=== PATIENT | male | born 1930 | race Caucasian/White ===

== ENCOUNTER 2016-06-03 21:34 | Emergency (ER) | payer OTHER ==
[~2016-06-03] VITALS: Ht 188 cm; Wt 79.4 kg
[~2016-06-03 21:34] MED LIST: ADULT LOW DOSE81 MG; ADULT LOW DOSE81 MG PO; APAP500; APAP500 PO; ASTELIN30 ML; ASTEPRO; ATORVASTATIN CA20 MG PO; AVODART0.5 MG; AVODART0.5 MG PO; AZELAST NASAL137 MC1 NASAL; AZITHROMYCIN 2250 MG PO; CARVEDILOL12.5 MG; CARVEDILOL12.5 MG PO; CEFTIN500 MG PO; COLACE100 MG PO; COUMADIN 4 MG TA4 M1; COUMADIN 4 MG TA4 M1 PO; CRESTOR20 MG; CRESTOR20 MG PO; FENOGLIDE40 MG PO; FINASTERIDE PO; FISH OIL 1,2001 EAC4 PO; FISHOIL; FISHOIL PO; FLONASE 0.05%50 MCG; FLONASE 0.05%50 MCG NASAL; FOLIC ACID 40400 MC1; FOLIC ACID 40400 MCG PO; JANTOVEN3 MG PO; KEFLEX500 MG PO; LASIX 20 MG TAB20 MG PO; LASIX 40 MG TAB40 MG PO; LISINOPRIL-HCT1 EAC1; LISINOPRIL-HCT1 EACH; LISINOPRIL10 MG PO; LISINOPRIL40 MG PO; MECLIZINE 25 MG25 M1 PO; METAMUCIL197.2 GM PO; METOPROLOL TARTRATE PO; MULTIVITAMINS; MULTIVITAMINS PO; NORCO 5-325 TA1 EACH PO; OMEPRAZOLE20 M2; PRILOSEC 20 MG20 MG PO; PROBENECID500 MG; PROBENECID500 MG PO; PROSCAR 5MG TABL5 M1 PO; SERTRALINE HCL50 MG; SERTRALINE HCL50 MG PO; SPIRONOLACTONE25 M1 PO; TAMSULOSIN HCL0.4 M1 PO; TRAMADOL 50 MG50 MG; TRAMADOL 50 MG50 MG PO; TRIGLIDE160 M1 PO; VALIUM5 MG PO; ZOLOFT100 MG PO; ZYRTEC10 M2 PO
[2016-06-03 22:30] LABS: INR 1.6; PROTIME 16.7 Seconds (9.3-11.4)
== END 2016-06-04 00:25 | disposition home or self-care (01) ==
LOC: ER 21:34
PROVIDERS: Emergency Medicine
DX: S00.83XA Contusion of other part of head, initial encounter (principal); S80.211A Abrasion, right knee, initial encounter; S51.801A Unspecified open wound of right forearm, initial encounter; E78.5 Hyperlipidemia, unspecified; I48.91 Unspecified atrial fibrillation; I25.10 Atherosclerotic heart disease of native coronary artery without angina pectoris; I10 Essential (primary) hypertension; I73.89 Other specified peripheral vascular diseases; I25.2 Old myocardial infarction; M19.90 Unspecified osteoarthritis, unspecified site; Z88.5 Allergy status to narcotic agent; W18.39XA Other fall on same level, initial encounter; Y93.89 Activity, other specified; Y92.098 Other place in other non-institutional residence as the place of occurrence of the external cause; Y99.8 Other external cause status

== ENCOUNTER 2017-04-18 14:54 | Inpatient (IN) | payer OTHER ==
[~2017-04-18] VITALS: Ht 188 cm; Wt 80.7 kg
--- NOTE | ~2017-04-18 | EKG ---
[address] [address] ELECTROCARDIOGRAM REPORT Name: FRANCES ANNE Room #: 364-P ADM IN M.R.#: [id number] Admission: 04/18/17 Attend Phys: Santiago Zepeda DO Discharge: Date of : 30 Report #: [id number] THIS REPORT FOR: //name// [facility] ED Test Date: 2017-04-18 Test Time: 15:44:54 Pat Name: FRANCES ANNE Department: Room: 364 Gender: M Sweatband Cutting Machine Operator: VERONICA : 1930 Requested By: Frances Britton Order Number: [id number] MD: Aramis Alanis Measurements Intervals [place] Rate: 97 P: [place]: 182 QRS: 29 QRSD: 226 T: -72 QT: 662 QTc: 841 Interpretive Statements A-V dual-paced complexes w/ some inhibition No further analysis attempted due to paced rhythm Compared to ECG 05/30/2013 11:49:27 No significant changes Electronically Signed On 04-18-2017 21:12:04 ECONOMICS FACULTY MEMBER by Aramis Alanis [email or web address] <ELECTRONICALLY SIGNED> By: Aramis Alanis MD 04/18/17 2112 1544 1544 Aramis Alanis MD /EPI
--- NOTE | ~2017-04-18 | 2DMMODE ---
[facility] [address] [place] [address] 2 D/M-MODE ECHOCARDIOGRAM Name: FRANCES ANNE Room #: 364-P [facility] IN M.R.#: [id number] Admission: 04/18/17 Attend Phys: Santiago Zepeda, Discharge: Date of : 30 Date of Service: 04/19/17 0950 Report #: [id number] THIS REPORT FOR: //name// APPROVED REPORT Study performed: 04/19/2017 09:24:29 EXAM: Comprehensive 2D, Doppler, and color-flow Echocardiogram Patient Location: Echo lab Room #: 364 Status: routine BSA: 2.06 HR: 63 bpm BP: 125/68 mmHg Rhythm: Paced Other Information Study Quality: Good Indications Elevated Troponin Hx: SC, ISCM, AICD, PVD, HTN, HLP 2D Dimensions RVDd: 46.37 mm LVEF(%): 25.28 (>50%) IVSd: 16.39 (7-11mm) LVOT Diam: 22.28 (18-24mm) LVDd: 67.59 mm PWd: 6.61 (7-11mm) Ascending Ao: 33.62 (22-36mm) LVDs: 59.46 (25-40mm) Aortic Root: 33.96 mm Cali's LVEF: 25.28 % Volumes Left Atrial Volume (Systole) Single Plane 4CH: 57.06 mL Single Plane 2CH: 79.83 mL LA ESV Index: 35.00 mL/m2 Aortic Valve AoV Peak Jem.: 1.09 m/s AO Peak Gr.: 4.74 mmHg LVOT Max P.78 mmHg LVOT Max V: 0.67 m/s DESI Vmax: 2.39 cm2 Mitral Valve E/A Ratio: 0.5 [facility] [place] [address] 2 D/M-MODE ECHOCARDIOGRAM Name: FRANCES ANNE Room #: 364-P [facility] IN M.R.#: [id number] Admission: 04/18/17 Attend Phys: Santiago Zepeda, Discharge: Date of : 30 Date of Service: 04/19/17 0950 Report #: [id number] MV Decel. Time: 341.15 ms MV E Max Jem.: 0.46 m/s MV A Jem.: 0.86 m/s MV PHT: 98.93 ms IVRT: 124.57 ms Pulmonary Valve PV Peak Jem.: 0.61 m/s PV Peak Gr.: 1.47 mmHg Tricuspid Valve TR Peak Jem.: 2.73 m/s RAP Estimate: 5.00 mmHg TR Peak Gr.: 29.87 mmHg PA Pressure: 35.00 mmHg Left Ventricle Left ventricle is moderately dilated. Moderate septal hypertrophy is present. Left ventricular systolic function is severely decreased. LVEF 25%. Akinesis of mid to distal setpum, inferior and inferolateral. Inferobasal aneusysm Mild diastolic dysfunction is present (impaired relaxation pattern). Right Ventricle Right ventricle is at the upper limits of normal. The right ventricular systolic function is normal. Pacemaker lead is present in the right ventricle. Atria Left atrium is mildly dilated. The right atrium size is normal. Aortic Valve Aortic valve leaflets are mildly calcified, trileaflet Mild aortic regurgitation. There is no aortic valvular stenosis. Mitral Valve The mitral valve is normal in structure. Mild mitral regurgitation. Tricuspid Valve The tricuspid valve is normal in structure. Mild tricuspid regurgitation. Estimated PAP is 35-40mmHg. Pulmonic Valve The pulmonary valve is normal in structure. Trace pulmonic regurgitation. [facility] [address] [place] [address] 2 D/M-MODE ECHOCARDIOGRAM Name: FRANCES ANNE Room #: 364-P [facility] IN M.R.#: [id number] Admission: 04/18/17 Attend Phys: Santiago Zepeda, Discharge: Date of : 30 Date of Service: 04/19/17 0950 Report #: [id number] Great Vessels The aortic root is normal in size. The ascending aorta is normal in size. IVC is normal in size and collapses >50% with inspiration. Pericardium There is no pericardial effusion. <Conclusion> Left ventricular systolic function is severely decreased. LVEF 25%. Akinesis of mid to distal setpum, inferior and inferolateral. Inferobasal aneusysm Mild diastolic dysfunction Aortic valve leaflets are mildly calcified, trileaflet. Mild aortic regurgitation, no stenosis. The mitral valve is normal in structure. Mild mitral regurgitation. Pulmonary artery pressure of 35-40mmHg Pacing wires in right heart No pericardial effusion <ELECTRONICALLY SIGNED> By: Roderick Bright MD, [facility] 04/19/1750 9 9 Roderick Bright MD, FAC /INF
--- NOTE | ~2017-04-18 | EKG ---
[address] [address] ELECTROCARDIOGRAM REPORT Name: FRANCES ANNE Room #: 364-P ADM IN M.R.#: [id number] Admission: 04/18/17 Attend Phys: Santiago Zepeda DO Discharge: Date of : 30 Report #: [id number] THIS REPORT FOR: //name// [facility] Test Date: 2017-04-19 Test Time: 06:37:33 Pat Name: FRANCES ANNE Department: Room: 364 P Gender: M [employer] Admissions Representative: COLETTE : 1930 Requested By: Juan Luis Elias Order Number: [id number] MD: Roderick Bright Measurements Intervals [place] Rate: 62 P: 124 IA: 55 QRS: 266 QRSD: 246 T: 91 QT: 566 QTc: 575 Interpretive Statements Atrial-sensed ventricular-paced rhythm No further analysis attempted due to paced rhythm Compared to ECG 04/18/2017 15:44:54 No significant changes Electronically Signed On 04-19-2017 9:57:23 CORPORATE GENERAL MANAGER by Roderick Bright [email or web address] <ELECTRONICALLY SIGNED> By: Roderick Bright MD, [facility] 04/19/17 0957 Roderick Bright MD, [facility] /EPI
[~2017-04-18 14:54] MED LIST changes: +KEFLEX500 M1 PO
[2017-04-18 14:55] VITALS: BP 90/49
[2017-04-18 15:43] LABS: HEMATOCRIT 40.5 % (42.0-52.0); HEMOGLOBIN 13.5 gm/dL (14.0-18.0); MCHC 33.5 g/dL (28.0-37.0); MCV 101.7 fL (80.0-100.0); PLATELET COUNT 167 thou/uL (150-400); RBC 3.98 mil/uL (4.50-6.00); RDW 13.9 % (10.5-14.5); WBC 15.4 thou/uL (4.0-11.0)
[2017-04-18 15:44] LABS: MANUAL DIFF YES
[2017-04-18 15:47] LABS: CALCIUM 8.7 mg/dL (8.5-10.1); POTASSIUM 4.5 mmol/L (3.5-5.1)
[2017-04-18 15:55] LABS: TROPONIN-I 0.24 ng/mL (<0.06)
[2017-04-18 15:58] LABS: INR 2.7; PROTIME 27.4 Seconds (9.3-11.4)
[2017-04-18 16:22] LABS: ABSOLUTE NEUTROPHILS 12.9 thou/uL (1.4-8.2); TOTAL CELL COUNT 100
[2017-04-18 16:23] LABS: ANISOCYTOSIS SLIGHT
[2017-04-18 17:20] LABS: URINE COLOR YELLOW; URINE SPECIFIC GRAVITY 1.015 (1.005-1.035)
[2017-04-18 17:21] LABS: URINE BILIRUBIN NEGATIVE (Negative); URINE BLOOD 2+ (Negative); URINE GLUCOSE-RANDOM* NEGATIVE (Negative); URINE KETONES NEGATIVE (Negative); URINE LEUKOCYTES-REFLEX 1+ (Negative); URINE PROTEIN (DIPSTICK) NEGATIVE (Negative); URINE UROBILINOGEN 0.2 E.U./dl (0.2-1.0)
[2017-04-18 17:29] LABS: CASTS None Seen /LPF (None Seen); CRYSTALS None Seen /LPF (None Seen); SQUAMOUS None Seen /LPF (0-3); URINE RBC 3-10 Few /HPF (0-2)
[2017-04-18 18:49] VITALS: BP 125/71
[2017-04-18 19:00] VITALS: BP 125/71
[2017-04-18 23:26] VITALS: BP 108/60
[2017-04-19 03:16] LABS: ABSOLUTE NEUTROPHILS 6.5 thou/uL (1.4-8.2); BASOPHILS 0.4 % (0.0-2.0); EOSINOPHILS 1.7 % (0.0-3.0); HEMATOCRIT 38.4 % (42.0-52.0); HEMOGLOBIN 12.8 gm/dL (14.0-18.0); LYMPHOCYTES 12.7 % (24.0-44.0); MCH 33.9 pg (26.0-34.0); MCHC 33.3 g/dL (28.0-37.0); MCV 101.8 fL (80.0-100.0); MONOCYTES 11.4 % (1.0-8.0); PLATELET COUNT 156 thou/uL (150-400); POLYS 73.8 % (36.0-66.0); RBC 3.77 mil/uL (4.50-6.00); RDW 13.3 % (10.5-14.5); WBC 8.8 thou/uL (4.0-11.0)
[2017-04-19 03:19] LABS: MANUAL DIFF NO
[2017-04-19 03:20] LABS: CREATININE 1.6 mg/dL (0.7-1.3); POTASSIUM 3.9 mmol/L (3.5-5.1)
[2017-04-19 03:55] VITALS: BP 122/73
[2017-04-19 07:37] VITALS: BP 125/68
[2017-04-19 09:52] VITALS: BP 121/66
[2017-04-19 09:53] VITALS: BP 115/64
[2017-04-19 09:55] VITALS: BP 104/50
[2017-04-19 14:49] VITALS: BP 104/50
== END 2017-04-19 16:25 | disposition home or self-care (01) | DRG 690 ==
LOC: ER 14:54 → EROBS 17:55 → 3W 17:55
PROVIDERS: Emergency Medicine; Family Medicine
DX: N39.0 Urinary tract infection, site not specified (principal); E86.0 Dehydration; I25.10 Atherosclerotic heart disease of native coronary artery without angina pectoris; I73.9 Peripheral vascular disease, unspecified; N18.9 Chronic kidney disease, unspecified; I12.9 Hypertensive chronic kidney disease with stage 1 through stage 4 chronic kidney disease, or unspecified chronic kidney disease; K57.90 Diverticulosis of intestine, part unspecified, without perforation or abscess without bleeding; I95.1 Orthostatic hypotension; I25.5 Ischemic cardiomyopathy; I49.5 Sick sinus syndrome; I48.2 Chronic atrial fibrillation; E78.00 Pure hypercholesterolemia, unspecified; Z96.649 Presence of unspecified artificial hip joint; Z96.653 Presence of artificial knee joint, bilateral; Z82.49 Family history of ischemic heart disease and other diseases of the circulatory system; Z95.5 Presence of coronary angioplasty implant and graft; Z79.899 Other long term (current) drug therapy; Z88.5 Allergy status to narcotic agent; Z95.810 Presence of automatic (implantable) cardiac defibrillator; Z86.718 Personal history of other venous thrombosis and embolism; Z86.711 Personal history of pulmonary embolism; I25.2 Old myocardial infarction; Z90.49 Acquired absence of other specified parts of digestive tract
CPT/HCPCS: 10879

== ENCOUNTER → 2019-02-01 | Outpatient (CLI) | payer OTHER ==
[~2019-02-01] VITALS: Ht 188 cm; Wt 76.2 kg
[~2019-02-01] MED LIST changes: +LASIX 40 MG TAB40 M2 PO
[2019-02-01 11:16] VITALS: BP 122/79
[2019-02-01 11:16] LABS: ABSOLUTE NEUTROPHILS 6.3 thou/uL (1.4-8.2); BASOPHILS 0.4 % (0.0-2.0); EOSINOPHILS 0.9 % (0.0-3.0); HEMATOCRIT 43.8 % (42.0-52.0); HEMOGLOBIN 14.2 gm/dL (14.0-18.0); LYMPHOCYTES 11.3 % (24.0-44.0); MCH 33.6 pg (26.0-34.0); MCHC 32.5 g/dL (28.0-37.0); MCV 103.4 fL (80.0-100.0); MONOCYTES 10.1 % (1.0-8.0); PLATELET COUNT 250 thou/uL (150-400); POLYS 77.3 % (36.0-66.0); RBC 4.24 mil/uL (4.50-6.00); RDW 13.6 % (10.5-14.5); WBC 8.2 thou/uL (4.0-11.0)
[2019-02-01 11:25] LABS: CREATININE 1.4 mg/dL (0.7-1.3); POTASSIUM 4.2 mmol/L (3.5-5.1)
[2019-02-01 11:26] LABS: INR 1.4; PROTIME 14.9 Seconds (9.3-11.4)
--- NOTE | 2019-02-12 15:56 | P ---
[facility] [place] [address] PROCEDURE REPORT Name: FRANCES ANNE Room #: REG [facility]#: [id number] Admission: 02/01/19 Attend Phys: Aramis Alanis MD Discharge: Date of : 30 Report #: [id number] THIS REPORT FOR: //name// CC: Aramis Sonen Az DATE OF SERVICE: 02/01/2019 PREOPERATIVE DIAGNOSIS: Implantable cardioverter-defibrillator at elective replacement interval. POSTOPERATIVE DIAGNOSIS: Implantable cardioverter-defibrillator at elective replacement interval. PROCEDURE PERFORMED: ICD generator change. HISTORY: The patient is an 88-year-old status post ICD implantation, who also has complete heart block. He is here for ICD generator exchange that is at elective replacement interval. ANESTHESIA: The patient underwent MAC anesthesia with no anesthesia related complications. DESCRIPTION OF PROCEDURE: The patient underwent informed consent. We discussed the details of the procedure including the risks, which include but not limited to bleeding, infection and need for possible lead revisions. He understood these risks and is willing to proceed. The patient was brought to EP laboratory in fasting and sedated state, prepped and draped in a sterile fashion, received IV antibiotics prior to initiation of the procedure. Next, I injected lidocaine at the incision site. Incision was made, pocket was opened. Old device was removed from the pocket, disconnected from the leads and we went directly to the new can as the patient has heart block. The device was tested and found to be functioning normally with stable pacing and sensing thresholds. The device was placed in the pocket. The pocket was closed in 2 layers using 2-0 for the deep layer, 3-0 for the middle layer and surgical glue for the outer skin layer. The patient awoke neurologically and hemodynamically intact. No complications and no significant bleeding. The explanted device was a Medtronic model #C144LDD, serial #[id number], implanted on 11/30/2012. The newly implanted device was a Medtronic model #IBYU9G7, serial #[id number]. The atrial lead was a [employer], model #1642, serial #[id number], implanted on 12/14/2006. The RV lead was a [employer] model #7020, serial #[id number], implanted on 12/14/2006. The atrial lead demonstrated P-wave 1.5 millivolts, pacing impedance of 399 ohms and the pacing threshold 1 volt at 0.4 milliseconds. The RV lead showed no underlying R waves, pacing impedance of 342 ohms, normal high voltage impedances and the pacing threshold [address] [address] PROCEDURE REPORT Name: FRANCES ANNE Room #: REG CL Yovana#: [id number] Admission: 02/01/19 Attend Phys: Aramis Alanis MD Discharge: Date of : 30 Report #: [id number] of 1.25 volts at 0.4 milliseconds. The device was programmed back to the DDDR 60-130 mode. The fast VT zone was set at 250 beats per minute and the VF zone was set at 182 beats per minute with ATP while charging followed by max output shocks. CONCLUSIONS: 1. Successful ICD generator exchange. 2. Satisfactory atrial and ventricular pacing and sensing thresholds. <ELECTRONICALLY SIGNED> By: Aramis Alanis MD 02/12/19 1556 1413 5744 Aramis Alanis MD /nt
== END | disposition home or self-care (01) ==
LOC: CATH 09:53
PROVIDERS: Internal Medicine Cardiovascular Disease
DX: Z45.02 Encounter for adjustment and management of automatic implantable cardiac defibrillator (principal); I12.9 Hypertensive chronic kidney disease with stage 1 through stage 4 chronic kidney disease, or unspecified chronic kidney disease; N18.9 Chronic kidney disease, unspecified; E78.5 Hyperlipidemia, unspecified; I48.91 Unspecified atrial fibrillation; I25.10 Atherosclerotic heart disease of native coronary artery without angina pectoris; I73.89 Other specified peripheral vascular diseases; I25.2 Old myocardial infarction; M19.90 Unspecified osteoarthritis, unspecified site; Z86.718 Personal history of other venous thrombosis and embolism; Z98.890 Other specified postprocedural states; Z88.8 Allergy status to other drugs, medicaments and biological substances; Z79.899 Other long term (current) drug therapy; Z79.82 Long term (current) use of aspirin; Z79.01 Long term (current) use of anticoagulants
CPT/HCPCS: 62110; 62900; 70005

== ENCOUNTER 2019-05-07 22:16 | Emergency (ER) | payer OTHER ==
[~2019-05-07] VITALS: Ht 188 cm; Wt 77.1 kg
[2019-05-07 22:49] LABS: HEMATOCRIT 36.8 % (42.0-52.0); HEMOGLOBIN 12.2 gm/dL (14.0-18.0); MCH 35.3 pg (26.0-34.0); PLATELET COUNT 173 thou/uL (150-400); RBC 3.44 mil/uL (4.50-6.00); RDW 16.5 % (10.5-14.5); WBC 6.3 thou/uL (4.0-11.0)
[2019-05-07 23:01] LABS: CALCIUM 7.1 mg/dL (8.5-10.1); CREATININE 1.3 mg/dL (0.7-1.3); MAGNESIUM 1.6 mg/dL (1.8-2.4); POTASSIUM 3.6 mmol/L (3.5-5.1); TROPONIN-I 0.18 ng/mL (<0.06)
[2019-05-07 23:09] LABS: INR 2.5; PROTIME 26.2 Seconds (9.3-11.4)
[2019-05-07 23:45] LABS: ANISOCYTOSIS 1+; MACROCYTES 2+; POLYCHROMASIA 1+
[2019-05-08 00:11] LABS: URINE BILIRUBIN NEGATIVE (Negative); URINE BLOOD NEGATIVE (Negative); URINE CLARITY CLEAR; URINE COLOR YELLOW; URINE GLUCOSE-RANDOM* NEGATIVE (Negative); URINE KETONES NEGATIVE (Negative); URINE LEUKOCYTES-REFLEX NEGATIVE (Negative); URINE NITRITE-REFLEX NEGATIVE (Negative); URINE PROTEIN (DIPSTICK) NEGATIVE (Negative); URINE SPECIFIC GRAVITY 1.025 (1.005-1.035); URINE UROBILINOGEN 0.2 E.U./dl (0.2-1.0)
[2019-05-08 01:13] VITALS: BP 104/62
--- NOTE | 2019-05-08 10:57 | EKG ---
[place] [address] [facility] [place] [address] ELECTROCARDIOGRAM REPORT Name: FRANCES ANNE Room #: DEP Yovana#: [id number] Admission: 05/07/19 Attend Phys: Discharge: 05/08/19 Date of : 30 Report #: [id number] THIS REPORT FOR: //name// [facility] ED Test Date: 2019-05-07 Test Time: 22:44:06 Pat Name: FRACNES ANNE Department: Room: Gender: M Physical Biochemist: no : 1930 Requested By: Farrukh Walton Order Number: [id number] MD: Kevin Gregg Measurements Intervals [place] Rate: 60 P: 0 NC: 44 QRS: -88 QRSD: 248 T: 109 QT: 582 QTc: 582 Interpretive Statements Ventricular-paced rhythm No further analysis attempted due to paced rhythm Compared to ECG 04/19/2017 06:37:33 Atrial-sensed ventricular-paced complex(es) or rhythm no longer present Electronically Signed On 05-08-2019 10:57:08 DOORPERSON by Kevin Gregg [email or web address] <ELECTRONICALLY SIGNED> By: Kevin Gregg MD 05/08/19 1057 2244 2244 Kevin Gregg MD /MAHI
== END 2019-05-08 01:16 | disposition home or self-care (01) ==
LOC: ER 22:16
PROVIDERS: Emergency Medicine
DX: H93.13 Tinnitus, bilateral (principal); R53.1 Weakness; I10 Essential (primary) hypertension; I48.91 Unspecified atrial fibrillation; I25.10 Atherosclerotic heart disease of native coronary artery without angina pectoris; E78.5 Hyperlipidemia, unspecified; M19.90 Unspecified osteoarthritis, unspecified site; Z86.718 Personal history of other venous thrombosis and embolism; Z86.711 Personal history of pulmonary embolism; Z95.5 Presence of coronary angioplasty implant and graft; Z95.0 Presence of cardiac pacemaker; Z88.6 Allergy status to analgesic agent

== ENCOUNTER → 2019-05-21 | Outpatient (CLI) | payer OTHER | LOC: HYPER 11:59 | DX: I70.235 Atherosclerosis of native arteries of right leg with ulceration of other part of foot (principal); L97.512 Non-pressure chronic ulcer of other part of right foot with fat layer exposed; L89.610 Pressure ulcer of right heel, unstageable; I70.245 Atherosclerosis of native arteries of left leg with ulceration of other part of foot; L97.522 Non-pressure chronic ulcer of other part of left foot with fat layer exposed; I70.243 Atherosclerosis of native arteries of left leg with ulceration of ankle; L97.322 Non-pressure chronic ulcer of left ankle with fat layer exposed; L89.623 Pressure ulcer of left heel, stage 3; R60.0 Localized edema; G90.09 Other idiopathic peripheral autonomic neuropathy; G62.9 Polyneuropathy, unspecified; I48.91 Unspecified atrial fibrillation; I42.9 Cardiomyopathy, unspecified; I50.9 Heart failure, unspecified; I25.10 Atherosclerotic heart disease of native coronary artery without angina pectoris; M19.90 Unspecified osteoarthritis, unspecified site; F41.9 Anxiety disorder, unspecified; Z86.718 Personal history of other venous thrombosis and embolism; Z86.711 Personal history of pulmonary embolism; Z95.0 Presence of cardiac pacemaker; Z79.01 Long term (current) use of anticoagulants; Z79.82 Long term (current) use of aspirin; Z90.49 Acquired absence of other specified parts of digestive tract; Z96.659 Presence of unspecified artificial knee joint ==

== ENCOUNTER 2019-05-31 14:29 | Inpatient (IN) | payer OTHER ==
[~2019-05-31] VITALS: Ht 193 cm; Wt 92.7 kg
[2019-05-31 14:30] VITALS: BP 111/77
[2019-05-31 14:53] LABS: BE(vivo) -5.2 mmol/L (-2 to +3); HCO3 21.8 mmol/L (22.0-26.0); PCO2 VENOUS 48.2 mmHg (41.0-51.0); PO2 VENOUS 27.3 mmHg (35.0-45.0)
[2019-05-31 14:59] LABS: HEMOGLOBIN 14.2 gm/dL (14.0-18.0); MCH 36.1 pg (26.0-34.0); MCHC 31.6 g/dL (28.0-37.0); MCV 114.2 fL (80.0-100.0); PLATELET COUNT 211 thou/uL (150-400); RBC 3.94 mil/uL (4.50-6.00); WBC 7.5 thou/uL (4.0-11.0)
[2019-05-31 15:07] LABS: CALCIUM 8.7 mg/dL (8.5-10.1); CREATININE 1.8 mg/dL (0.7-1.3); POTASSIUM 4.3 mmol/L (3.5-5.1)
[2019-05-31 15:18] LABS: ALBUMIN 2.9 g/dL (3.4-5.0); TOTAL BILIRUBIN 0.7 mg/dL (<0.1-1.0); TOTAL PROTEIN 6.5 g/dL (6.4-8.2); TROPONIN-I 0.18 ng/mL (<0.06)
[2019-05-31 15:24] LABS: ABSOLUTE NEUTROPHILS 5.5 thou/uL (1.4-8.2); ATYPICAL LYMPHS 6 %; PLATELET ESTIMATE NORMAL
[2019-05-31 15:26] LABS: ANISOCYTOSIS 2+; MACROCYTES 3+; POLYCHROMASIA SLIGHT
[2019-05-31 15:33] LABS: APTT 36.2 Seconds (24.5-32.8); INR 2.3; PROTIME 23.4 Seconds (9.3-11.4)
[2019-05-31 16:03] LABS: URINE BILIRUBIN NEGATIVE (Negative); URINE BLOOD NEGATIVE (Negative); URINE CLARITY CLEAR; URINE COLOR YELLOW; URINE GLUCOSE-RANDOM* NEGATIVE (Negative); URINE KETONES NEGATIVE (Negative); URINE LEUKOCYTES-REFLEX NEGATIVE (Negative); URINE NITRITE-REFLEX NEGATIVE (Negative); URINE PROTEIN (DIPSTICK) TRACE (Negative); URINE SPECIFIC GRAVITY 1.025 (1.005-1.035); URINE UROBILINOGEN 0.2 E.U./dl (0.2-1.0)
--- NOTE | 2019-05-31 16:26 | EKG ---
[place] [address] [facility] [place] [address] ELECTROCARDIOGRAM REPORT Name: FRANCES ANNE Room #: 170-9 ADM IN M.R.#: [id number] Admission: 05/31/19 Attend Phys: Kranthi Villavicencio Discharge: Date of : 30 Report #: [id number] THIS REPORT FOR: //name// [facility] ED Test Date: 2019-05-31 Test Time: 14:32:25 Pat Name: FRANCES ANNE Department: Room: 170 Gender: M Lead Relay Tester: DOUG : 1930 Requested By: Abdulaziz Billy Order Number: [id number] MD: Roderick Bright Measurements Intervals [place] Rate: 65 P: 0 CA: 211 QRS: -74 QRSD: 245 T: 112 QT: 563 QTc: 586 Interpretive Statements A-V dual-paced rhythm with some inhibition No further analysis attempted due to paced rhythm Compared to ECG 05/07/2019 22:44:06 No significant changes Electronically Signed On 05-31-2019 16:25:59 NETWORK MANAGEMENT SPECIALIST by Roderick Bright [email or web address] <ELECTRONICALLY SIGNED> By: Roderick Bright MD, [facility] 05/31/19 1625 1432 143 Roderick Bright MD, [facility] /EPI
[2019-05-31 17:48] VITALS: BP 105/74
[2019-05-31 20:30] VITALS: BP 100/80
[2019-06-01 00:40] VITALS: BP 114/68
[2019-06-01 04:45] VITALS: BP 107/70
[2019-06-01 05:15] LABS: CREATININE 1.8 mg/dL (0.7-1.3); POTASSIUM 4.1 mmol/L (3.5-5.1)
[2019-06-01 05:23] LABS: CALCIUM 6.7 mg/dL (8.5-10.1)
[2019-06-01 05:25] LABS: ALBUMIN 1.7 g/dL (3.4-5.0); PHOSPHORUS 1.9 mg/dL (2.5-4.9); TROPONIN-I 0.18 ng/mL (<0.06)
--- NOTE | 2019-06-01 07:43 | NUR ---
ASSESSMENT DOCUMENTED.PT BEEN RESTING IN BED.A/O TO SELF,FOLLOWS COMMANDS [id number] MOST OF THE TIME.VSS.AV PACED ON MONITOR.ON RA W/O RESP DISTRESS PT HAD A NIGHT OF YELLING,"OH GOD HELP ME" AND "HELP HELP BUT WHEN PROMPTED STATES THAT HE DOES NOT KNOW WHAT HE WANTS.PT WAS GIVEN SLEEPING PILL AND PAIN MED AND HE WAS ABLE TO SLEEP FOR 2-3 HOURS THEN AWAKE ALL NIGHT.NOTED RETENTION AND NOT ABLE TO VOID,BLADDER SCANNED PER PROTOCOL,OBTAINED 590CC RESIDUE,COMPOSITION ROOFER NOTIFIED ORDER TO INSERT CATHETER WAS GIVEN THAT WAS SUCCESSFUL DD YELLOW CLEAR URINE.THIS MORNING NOTED LIKE SOME BLOOD IN THE DAMON THAT MIGHT BE FROM PT TRYING PULLING THE CATHETER OUT,DAY RN NOTIFIED TO CONTINUE TO MONITOR.PT HAS ALSO MUTIPLE WOUNDS TO NABEEL LOWER LEGS/HEELS,SEE PICTURES IN THE CHART.COMPOSITION ROOFER NOTIFIED ADN UPDATED ON PT STATUS BUT DID NOT WANT TO GIVE PT ANYTHING AT THIS MORNING.REPORT GIVEN TO DAY RN.POC IS TO CONT TO MONITOR.WILL CONT TO MONITOR PER POC. CHART,WOUND CARE CONSULTED.
[2019-06-01 08:00] VITALS: BP 100/60
[2019-06-01 11:00] VITALS: BP 99/60
[2019-06-01 15:35] VITALS: BP 116/66
--- NOTE | 2019-06-01 17:28 | NUR ---
ASSUMMED PT CARE AT APPROXIMATELY 0700. PT AWAKE AND ORIENTED TO SELF. FREQUENT REORIENTATION PROVIDED. ENCOURAGED PT TO EAT AND DRINK. PT HAS POOR APPETITIE. EDUCATED PT AND PT'S FAMILY ABOUT POC. PT AND PT'S FAMILY STATED UNDERSTANDING AND DENIED HAVING FURTHER QUESTIONS. PT SHOUTS OUT AND MOANS. TRIED TO GIVE ORAL PAIN MEDICATIONS. PT STATED "NO." ASKED IF PT COULD HAVE ALTERNATIVE PAIN MEDICATION. STATED NO NEW ORDERS. VITAL SIGNS STABLE. MORNING BLOOD SUGAR LOW. FOLLOWED HYPOGLYCEMIC PROTOCOL. BLOOD SUGARS STABLE.
[2019-06-01 20:10] VITALS: BP 103/66
[2019-06-02 04:39] VITALS: BP 106/61
--- NOTE | 2019-06-02 05:37 | NUR ---
ASSESSMENT DOCUMENTED.PT BEEN RESTING IN NO ACUTE DISTRESS.VSS.ON RA W/O RESPIRATORY DISTRESS.ALERT TO SLEEP.PT BEEN SLEEPING MOST OF THE NOC,LESS IMPULSIVENESS THIS SHIFT.NELSON DD,BLOOD TINGED URINE.PT REFUSING TO TAKE MEDS,DRINKS OR EAT ANYTHING..PT ASKING TO BE LEFT ALONE.DENIES PAIN OR ANY DISTRESS.REFUSED POSITIONING WELL.NO CONCERNS VOICED AT THIS TIME.WILL CONT TO MONITOR PER POC.
[2019-06-02 05:52] LABS: ALBUMIN 2.6 g/dL (3.4-5.0); CALCIUM 8.4 mg/dL (8.5-10.1); CREATININE 1.8 mg/dL (0.7-1.3); POTASSIUM 4.1 mmol/L (3.5-5.1)
[2019-06-02 10:40] VITALS: BP 113/74
--- NOTE | 2019-06-02 11:55 | NUR ---
RECEIVED PT'S CARE AROUND 0710; PT. ON BED; RESTING WITH EYES CLOSED; EQUAL CHEST RISING NOTICED; DURING THE MORNING PT. REFUSED VS OR BEING TOUCH; ALER TO PERSON; REFUSED BREAKFAST; REFUSED DRINKING; SHOUTED "NO NO NO"; "HELP, HELP"; DR. ABDOUL REDDY; ORDERS TO TRANSFER ON PLACE; COMMISSIONER PUBLIC WORKS NOTIFIED; CHILDREN "FIDELIA" NOTIFIED; ST. UNDERSTANDING; FENTANYK PATCH APPLIED; AFTER 1000 PT. CALMER; CHILDREN AT THE BED SIDE; VS TAKEN; BS 66; AM MEDICATION GIVEN WITH CHILDREN HELP; PT. AGREED TO DRINK APPLE JUICE & EAT APPLE SAUCE; REPORT CALLED; ASSESSMENT CHARGED; FOLLOWING POC; PASSED ON REPORT;
[2019-06-02 16:40] VITALS: BP 118/74
--- NOTE | 2019-06-02 17:17 | NUR ---
Pt transferred from . Pt denies pain but shouts intermittently. Thickened liquids. Dressing on wounds clean and intact. Family at bedside. Pt needs encouragement to drink or eat anything. Family at bedside. Fall precautions in place.
[2019-06-02 19:52] VITALS: BP 107/63
--- NOTE | 2019-06-03 01:56 | NUR ---
ASSESSED AT START OF SHIFT A&OX1 TO PERSON.INCONTENT FOLLEY CATH INTACT. PT INTERMITTENTLY YELLS OUT IN UNCOMPREHENSIVE WORDS. ON A PURRED DIET. MEDS CRUSHED AND GIVEN IN NECTAR THICK LIQUID. PT CARL IT WELL. FALL PREC IN PLACE AND FREQ ROUNDING DONE WILL CONT WITH POC TILL EOS.
[2019-06-03 04:57] VITALS: BP 114/72
[2019-06-03 06:52] LABS: ALBUMIN 2.5 g/dL (3.4-5.0); CALCIUM 8.3 mg/dL (8.5-10.1); CREATININE 1.5 mg/dL (0.7-1.3); POTASSIUM 3.8 mmol/L (3.5-5.1)
[2019-06-03 08:23] VITALS: BP 113/66
--- NOTE | 2019-06-03 12:30 | NUR ---
Notified of low chucho score. Chart reviewed and pt will be discharging home with hospice. ST has assessed for swallowing. Defer further nutrition assessment at this time
--- NOTE | 2019-06-03 13:13 | NUR ---
INITIAL ASSESSMENT: Pt evaluated for d/c planning needs. Reviewed chart and spoke with nurse, pt, 2 sons and daughter. Pt is confused. Pt lives in house with son and his family. Up until right before [place], pt was able to ambulate in the house and needed minimal assistance. Physician spoke with pt and 2 sons re: hospice and they are agreeable. Pt is currently on service with [facility]. Called [facility] to confirm. Pt has w/c and commode at home. Pt's 2 sons said they are interested in [facility]. Called [facility] and set up informational meeting. Hospice nurse met with pt and family members at bedside. Pt would qualify for respite at [facility] and then transition either to alf care at facility or return home. Family said they would have problems providing 24 caregivers at home. Family is also interested in pt going to [facility]. Referral sent to [facility]. Called to schedule informational meeting with family. Tentative d/c is scheduled for Monday. Will remain available to assist as needed.
[2019-06-03 16:55] VITALS: BP 126/80
[2019-06-03 19:10] VITALS: BP 112/67
--- NOTE | 2019-06-03 19:57 | NUR ---
Assumed care of pt at 0700. Pt a&ox 1-2. Denies pain. Fentanyl patch in place. Lopez catheter in place. Pureed diet, nectar thick liquids. Q2h turn. Family at bedside throughout shift. Prefo boots applied. Possible D/C home with hospice tomorrow 06/04. Fall precautions in place. Report given to ida FITCH.
--- NOTE | 2019-06-04 02:20 | NUR ---
ASSESSMENT COMPLETED. PT YELLS AT TIMES. Q2 HR TURN.. AFEBRILE. PRAFO BOOTS IN PLACE. SOME STOOL SMEARS. DAMON TO D/D WITH [facility].ROOM AIR-NO ISSUES.SOME SWALLOWING DIFFICULTY.FALL PREC IN PLACE.
[2019-06-04 03:47] VITALS: BP 119/81
[2019-06-04 05:31] LABS: CALCIUM 8.6 mg/dL (8.5-10.1); CREATININE 1.4 mg/dL (0.7-1.3); POTASSIUM 3.8 mmol/L (3.5-5.1)
[2019-06-04 07:36] VITALS: BP 133/73
[2019-06-04] MEDS ORDERED: DURAGESIC1 EAC4 TRANSDERM (11:44)
--- NOTE | 2019-06-04 12:09 | NUR ---
Following for d/c planning needs. [facility] evaluated pt at bedside today and pt qualifies for inpatient hospice. They currently do not have a bed available. They will contact CM or the unit when bed becomes available. Asked financial planner to complete ambulance transfer form. Spoke with family members at bedside and all are in agreement.
--- NOTE | 2019-06-04 12:46 | NUR ---
Assumed care of pt at 0700. Pt confused and intermittently yelling out. Reached out to wound care and stated they would see pt today. Family concerned that pt is restless and not comfortable. Provider notified. States he will incres fentanyl patch to 50mcg. Supervisor Coal Handling from hospice house visited with pt. States pt has been accepted but waiting for a bed Pt restless at that moment. Supervisor Coal Handling asks nurse if possible to notify physician to d/c fentanyl patch, add comfort care orders, haldol or ativan subling, and sugling dilaudid. Provider notified. Provider answers NO. Lopez catheter in place. Q2h turn. Meds crushed in pudding or apple sauce. [place] thick liquids. Family at bedside. Fall precautions in place. Will continue to monitor.
--- NOTE | 2019-06-04 15:46 | NUR ---
WOUND CONSULT; WOUNDS TO THE LEFT BILATERAL MALLEOLOUS AND THE RIGHT HEEL. THE RIGHT HEEL HAS HARD STABLE ESCAR. THE LEFT BILAT MALLEOLOUS ARE UNSTABLE WOUNDS WITH SCANT DRAINAGE. RECOMMENDATION; BORDER FOAMS TO THE BILATERAL LEFT MALLEOLOUS, AND BETADINE TO THE RIGHT HEEL, COVER WITH A BORDER FOAM. DISCUSSED WITH LITTLE
--- NOTE | 2019-06-04 16:44 | NUR ---
PT TO DC TO [facility] WHEN BED AVAILABLE DC ORDERS/SUMMARY AND AMBULANCE FORM PLACED WITH PT'S CHART IF A BED WOULD BECOME AVAILABLE. IF PT DISCHARGES FAX AMBULANCE FORM TO [phone] AND AFTER CONFIRMATION RECEIPT CALL AND ARRANGE TRANSPORT ALSO FAX DC ORDERS/SUMMARY TO [facility] [phone].
[2019-06-04 17:39] VITALS: BP 129/90
[2019-06-04 19:20] VITALS: BP 145/96
[2019-06-05 04:30] VITALS: BP 132/70
--- NOTE | 2019-06-05 05:43 | NUR ---
PT WAS OBSERVED YELLING OUT WHILE IN BED IN THE COMPANY OF HIS FAMILY AT START OF SHIFT.PT REPOSITIONED Q2.PT WAS RESTLESS AT THE MIDDLE OF THE NIGHT,LORAZEPAM SUBLINGUAL ADMINISTERED,EFFECTIVE.DRGS ON HIS HEEL C/D/I.DAMON CATH IN PLACE WITH YELLOW URINE IN THE BAG.PT'S O2 SAT AT 87 THIS AM, PT PUT ON 2L/NC PT RESPONDED WELL.PT RESTING ON HIS BED AT THIS TIME.FALL PRECAUTIONS IN PLACE,CALL LIGHT WITHIN REACH.
[2019-06-05 07:52] VITALS: BP 117/83
--- NOTE | 2019-06-05 08:01 | NUR ---
PT SLEEPING AT THIS TIME V.S. 97.6 14 83 117/83 O2SAT =98%2L/NC DAMON CATH D/D 50 CC CLEAR YELLOW URINE.
--- NOTE | 2019-06-05 11:33 | NUR ---
PT LEFT UNIT AT THIS TIME FOR COLONOSCOPY.
--- NOTE | 2019-06-05 14:23 | NUR ---
Following for d/c planning needs. Spoke with [facility] liaison this morning and they did not have a bed available. Received telephone call from Aleja at [facility] this afternoon and they have a bed available and are able to accept pt today. Spoke with family and they are in agreement with plans. Faxed ambulance transfer form to [facility] and called to schedule ambulance transfer at 1500. Chart copied. RN given phone number to call report. Outside the hospital DNR form completed and placed on chart. No other needs identified. [facility] [phone] [facility] [phone] (report)
--- NOTE | 2019-06-05 16:24 | NUR ---
[facility] HERE AT 1615. PT GIVEN 1 TIME ORDER OF HALDOL IV PUSH. ALL BELONGINGS PACKED ANS SENT WITH FAMILY WOUND CARE INCLUDING DRESSING CHANGES AND PICTURES DONE.
== END 2019-06-05 16:29 | disposition hospice, home (50) | DRG 177 ==
LOC: ER 14:29 → EROBS 15:49 → 4S 15:49 → 2N 18:09 → 4S 06-02 12:32
PROVIDERS: Emergency Medicine; Nurse Practitioner Adult Health; ADMIT Hospitalist
DX: J69.0 Pneumonitis due to inhalation of food and vomit (principal); J96.00 Acute respiratory failure, unspecified whether with hypoxia or hypercapnia; E43 Unspecified severe protein-calorie malnutrition; I13.0 Hypertensive heart and chronic kidney disease with heart failure and stage 1 through stage 4 chronic kidney disease, or unspecified chronic kidney disease; I25.5 Ischemic cardiomyopathy; N18.9 Chronic kidney disease, unspecified; E78.5 Hyperlipidemia, unspecified; I48.91 Unspecified atrial fibrillation; I25.10 Atherosclerotic heart disease of native coronary artery without angina pectoris; I73.9 Peripheral vascular disease, unspecified; M19.90 Unspecified osteoarthritis, unspecified site; B35.1 Tinea unguium; J30.9 Allergic rhinitis, unspecified; I86.1 Scrotal varices; K57.90 Diverticulosis of intestine, part unspecified, without perforation or abscess without bleeding; Z96.653 Presence of artificial knee joint, bilateral; F03.90 Unspecified dementia, unspecified severity, without behavioral disturbance, psychotic disturbance, mood disturbance, and anxiety; E86.0 Dehydration; Z51.5 Encounter for palliative care; S81.802A Unspecified open wound, left lower leg, initial encounter; S81.801A Unspecified open wound, right lower leg, initial encounter; W18.39XA Other fall on same level, initial encounter; Z66 Do not resuscitate; I50.9 Heart failure, unspecified; Y92.89 Other specified places as the place of occurrence of the external cause; Z86.718 Personal history of other venous thrombosis and embolism; Z79.01 Long term (current) use of anticoagulants; Z86.711 Personal history of pulmonary embolism; Z95.810 Presence of automatic (implantable) cardiac defibrillator; I25.2 Old myocardial infarction; Z90.49 Acquired absence of other specified parts of digestive tract; Z82.49 Family history of ischemic heart disease and other diseases of the circulatory system; Z88.5 Allergy status to narcotic agent; Y93.89 Activity, other specified; Z68.24 Body mass index [BMI] 24.0-24.9, adult; Y99.8 Other external cause status; Z28.21 Immunization not carried out because of patient refusal
CPT/HCPCS: 10102; 10797